=== PATIENT | female | born 1965 | race Caucasian/White ===

== ENCOUNTER 2023-07-28 15:19 | Emergency (ER) | payer MEDICARE, SELFPAY ==
[2023-07-28 15:28] VITALS: BP 121/68; PULSE 91; RESP 15; TEMP 36.9; O2SAT 98; BMI 39.9
[2023-07-28 15:31] VITALS: BP 114/60; PULSE 88; O2SAT 98
--- NOTE | 2023-07-28 15:52 | HMH.EDGENADL ---
Discharge Plan Disposition Chief Complaint: Abdominal Pain Referrals Follow up/Referrals: Anastasiya Morton DO [Primary Care Provider] - See instructions Activity Restrictions/Add. Instructions Additional Instructions/Restrictions: At this time it was felt you are safe to be discharged home. If new or worsening symptoms please do not hesitate to return the emergency department. If symptoms persist please follow-up with your family doctor as you are able. Please obtain MiraLAX from your local store and take as the package directs for your constipation. Clinical Impressions Clinical Impression: Constipation Discharge ED Provider: Daquan Mitchell General Adult HPI General Chief complaint: Abdominal Pain Stated complaint: constipated Time Seen by Provider: 07/28/23 15:25 Mode of Arrival: Ambulatory Source of Information: Patient Limitations: No Limitations Description of Symptoms (Recalled from ER Triage Doc. by RN): 58 yo F presents to ED with c/o constipation. pt reports she had last BM 3 days ago and since then she has been unable to go.pt reports sitting on the toilet for approx 1 hour with no relief. pt reports no OTC medications taken [employer]. History of Present Illness HPI narrative: Patient is a 58-year-old female past medical history of previous constipation who presents emergency department for evaluation of constipation. Patient states that last bowel movement was 3 days ago, normally has a bowel movement every day. Patient is passing flatus. Last bowel movement was firm, incomplete. No medications taken prior to arrival. Patient denies abdominal pain, chest pain, other acute complaints at this time. Related Data Allergies Allergy/AdvReac Type Severity Reaction Status Date / Time No Known Allergies Allergy Verified 07/28/23 15:49 [facility] Disclaimer: The information contained in this section may have been updated after the patient was seen, as this information can be updated by other users. Social History Smoking Status: Never smoker alcohol intake: never current occupational status: other Travel in the last 8 weeks: None ROS Obtained: Yes Systems reviewed as appropriate & no additional complaints except as documented Physical Exam General General appearance: alert and in no apparent distress Head Head exam: atraumatic and normocephalic Eye Eye exam: Present PERRL and EOMI ENT ENT exam: Present mucous membranes moist Neck Neck exam: Present normal inspection Chest Chest inspection: Present normal inspection and symmetric chest wall rise Respiratory Respiratory exam: Present normal lung sounds bilaterally; Absent respiratory distress Cardiovascular Cardiovascular exam: Present regular rate and normal rhythm Abdominal Exam Abdominal exam: Present soft; Absent tenderness Extremities Exam Extremities exam: Present normal inspection Neurological Exam Neurological exam: Present alert Psychiatric Psychiatric exam: Present normal affect Skin Skin exam: Present warm and dry Medical Decision Making Clarence Inquiry Pt receiving controlled substance: No Vital Signs: 07/28/23 15:28 07/28/23 15:31 Temperature 98.5 F Temperature Source Oral Pulse Rate 88 Pulse Rate [Left Radial] 91 H Respiratory Rate 15 Blood Pressure 114/60 Blood Pressure [Right Arm] 121/68 Blood Pressure Mean 75 Blood Pressure Mean [Right Arm] 85 02 Sat by Pulse Oximetry 98 98 Oxygen Delivery Method Room Air Room Air Medical Decision Narrative: In summary patient is a 58-year-old female past medical history described above presents emergency department for evaluation of constipation. Patient is hemodynamically stable nontoxic-appearing upon arrival, afebrile. Patient has a nonfocal exam, abdominal exam is benign. Shared decision making discussion was had at bedside and patient wishes to undergo enema which will be ordered. Work-up was considered with labs and imaging however given that patient
--- NOTE | 2023-07-28 16:12 | PC.NURSE ---
1L soap suds enema administered. no concerns voiced. enema admin tolerated. pt provided bedside commode and wipes with call page in reach
[2023-07-28 16:25] VITALS: BP 149/77; PULSE 103; RESP 20; TEMP 36.7; O2SAT 96
== END 2023-07-28 16:57 | disposition home or self-care (01) ==
LOC: ER 15:50
PROVIDERS: Emergency Provider Emergency Medicine; PCP Internal Medicine
DX: K59.00 Constipation, unspecified (principal)
CPT/HCPCS: 99283